=== PATIENT | male | born 1945 | race Caucasian/White ===

== ENCOUNTER 2020-10-27 12:21 | Inpatient (IN) | payer OTHER, MEDICARE ==
[~2020-10-27] VITALS: Ht 167.6 cm; Wt 78.8 kg
[~2020-10-27 12:21] MED LIST changes: -FLOMAX0.4 MG PO; -LEXAPRO20 MG PO; -MELATONIN5 MG PO; -PRESERVISION A1 EAC2 PO
[2020-10-27 12:29] VITALS: BP 126/64
[2020-10-27 13:36] LABS: ABSOLUTE NEUTROPHILS 2.8 thou/uL (1.4-8.2); BASOPHILS 0.6 % (0.0-2.0); EOSINOPHILS 3.9 % (0.0-3.0); HEMATOCRIT 46.5 % (42.0-52.0); HEMOGLOBIN 15.5 gm/dL (14.0-18.0); LYMPHOCYTES 32.6 % (24.0-44.0); MCH 31.4 pg (26.0-34.0); MCHC 33.3 g/dL (28.0-37.0); MCV 94.3 fL (80.0-100.0); MONOCYTES 9.4 % (1.0-8.0); PLATELET COUNT 150 thou/uL (150-400); POLYS 53.5 % (36.0-66.0); RBC 4.93 mil/uL (4.50-6.00); RDW 13.9 % (10.5-14.5); WBC 5.2 thou/uL (4.0-11.0)
[2020-10-27 13:45] LABS: ANION GAP 6 mmol/L (7-16); BUN 20 mg/dL (7-18); CHLORIDE 107 mmol/L (98-107); CO2 30 mmol/L (21-32); GLUCOSE 102 mg/dL (74-106); POTASSIUM 4.2 mmol/L (3.5-5.1); SODIUM 143 mmol/L (136-145)
[2020-10-27 13:53] LABS: APTT 23.9 Seconds (24.5-32.8); INR 1.1; PROTIME 11.9 Seconds (9.3-11.4)
[2020-10-27 13:57] LABS: ALBUMIN 3.7 g/dL (3.4-5.0); MAGNESIUM 1.8 mg/dL (1.8-2.4); SGOT 18 U/L (15-37); SGPT 25 U/L (16-63); TOTAL BILIRUBIN 1.2 mg/dL (0.2-1.0); TOTAL PROTEIN 6.7 g/dL (6.4-8.2); TROPONIN-I <0.06 ng/mL (<0.06)
[2020-10-27 15:35] VITALS: BP 123/63
[2020-10-27 16:35] VITALS: BP 107/59
[2020-10-27] MEDS ORDERED: FLOMAX0.4 MG PO (16:37)
[2020-10-27] MEDS ORDERED: PRESERVISION A1 EAC2 PO (16:39)
[2020-10-27] MEDS ORDERED: LEXAPRO20 MG PO (16:41)
[2020-10-27] MEDS ORDERED: MELATONIN5 MG PO (16:41)
--- NOTE | 2020-10-27 17:30 | EKG ---
[address] [address] ELECTROCARDIOGRAM REPORT Name: CLARISSA YOON Room #: 203-P ADM IN .R.#: [id number] Admission: 10/27/20 Attend Phys: Norman Arevalo MD Discharge: Date of : 45 Report #: [id number] [facility] ED Test Date: 2020-10-27 Test Time: 12:54:43 Pat Name: CLARISSA YOON Department: Room: 203 Gender: M [employer] Analyst: CHRIS : 1945 Requested By: Elliott Dorsey Order Number: [id number] MD: Jay Caruso Measurements Intervals [place] Rate: 38 P: 4 GA: 196 QRS: -27 QRSD: 97 T: 10 QT: 464 QTc: 369 Interpretive Statements Sinus bradycardia, possible heart block Inferior infarct, old No previous ECG available for comparison Electronically Signed On 10-27-2020 17:30:30 CDT by Jay Caruso [email or web address] <ELECTRONICALLY SIGNED> By: Jay Caruso MD, [facility] 10/27/20 1730 1254 1254 Jay Caruso MD, FACC /EPI
--- NOTE | 2020-10-27 17:54 | NUR ---
PT. ARRIVED AT THE FLOOR AROUND 1630; PT. AOX4; ABLE TO AMBULATE WITHOUT ASSISSTANCE; EDUCATED ABOUT FALL PRECAUTIONS AND HIGH FALL PRECAUTIONS DUE TO COMPLETE HEART BLOCK; EDUCATED ABOUT CALLING BEFORE GETTING UP FROM; [facility]; NO C/O PAIN; REQUESTED NICOTINE PATCH AND SLEEP MEDICATION; PHYSICIAN PAGED; ORDERS RECEIVED FROM JARETH ASSISTANT PROFESSOR NURSE EDUCATION; EDUCATED ABOUT ADMISSION; [facility]; NO C/O SOB OR DIZZINESS; REMAINED ABOUT NPO AFTER MIDNIGHT; MEDICATION RECONCILIATION PERFORMED; EDUCATED ABOUT USING THE URINAL; [facility]; HR ON THE 40s; ADMISSION PERFORMED; ASSESSMENT CHARGED; FOLLOWING POC; WILL PASS ON REPORT;
[2020-10-27 20:15] VITALS: BP 118/60
[2020-10-27 23:20] VITALS: BP 101/51
[2020-10-28 04:45] VITALS: BP 125/69
--- NOTE | 2020-10-28 08:03 | NUR ---
[facility] 190. PT/VITALS STABLE. DENIES ANY PAIN. ASSESSMENT CHARTED. PROGRESSING WELL WITH POC. NO DISTRESS NOTED. COMPLETE HEART BLOCK/ SOMETIMES SB ON MONITOR. PLAN IS POSSIBLE PACEMAKER IMPLANTATION TODAY. WILL CONTINUE TO MONITOR AND FOLLOW WITH POC
--- NOTE | 2020-10-28 08:09 | NUR ---
[facility] 1900. PT/VITALS STABLE. BP RUNS HIGH. DENIES ANY PAIN. MODERATE TOLERANCE TO ACTIVITY. ASSESSMENT CHARTED. PROGRESSING WELL WITH POC. NO DISTRESS/ADEQUATE REST NOTED. PLAN IS POSSIBLE CARDIAC CATH TODAY. NPO SINCE MIDNIGHT. WILL CONTINUE TO MONITOR AND FOLLOW WITH POC
[2020-10-28 08:20] VITALS: BP 118/67
--- NOTE | 2020-10-28 13:50 | NUR ---
Nutrition: pt admitted with complete heart block, S/P pacemaker placement today. Seen due to high risk nsg screen for weight loss, poor intake. Pt reports "this was a long time ago". Stating he lost 20 # and had a poor appetite over a year ago. Normal appetite and stable weights past year. Ate 90% of dinner last noc and has been NPO today for procedure. Instructed pt on ordering meals as desired. Consider low nutrition risk.
--- NOTE | 2020-10-28 14:43 | NUR ---
Patient admits with heart block plan for pacemaker. Patient reports he lives at home with roommate. All needs on one level. He does not use any assistive device. He cont to drive. Independent with adls. PCP Dr Dl Gatica, Anticipate no needs at dc. casemgt following.
--- NOTE | 2020-10-28 17:44 | NUR ---
ASSUMED CARE SHIFT CHANGE. ASSESSMENTS CHARTED.MEDS GIVEN PER SEP. VSS. C/O HEADACHE/ SORENESS INCISISON MANAGED WITH PO TYLENOL. COMP HB THIS AM, PACEMAKER THIS SHIFT, AV PACED ON MONITOR IN 60S. IMMOBILIZER IN PLACE, BEDREST PER ORDERS. PT CURRENTLY RESTING IN BED, DENIES NEEDS AT THIS TIME. CONTINUING POC. WILL PASS ON REPORT TO LARA ALEXIS
[2020-10-28 19:30] VITALS: BP 119/67
[2020-10-29 07:57] VITALS: BP 124/81
[2020-10-29 11:35] VITALS: BP 109/79
--- NOTE | 2020-10-29 11:53 | NUR ---
RECEIVED PT'S CARE AROUND 0725; PT. ON BED; VPACED ON THE MONITOR; PER NIGHT NURSE REPORT PT. REFUSED BED SIDE REPORT; DURING AM ASSESSMENT PT. AOX4; C/O PAIN OVER INCISION; TOLERABLE; AM MEDICATIONS GIVEN; EDUCATED ABOUT GOALS THROUGH THE DAY; XRAY; D/C PROCESS; [facility]; D/C ORDERS ON PLACED; PT. NOTIFIED; REQUESTED TO CALL SIGNIFICANT OTHER TO NOTIFIED AND PICK HIM UP; CALL AND NOTIFIED ABOUT D/C TIME, 1300,; [facility]; PT. EDUCATED ABOUT USING IMMOBILIZER DURING THE NIGHT IF NECESSARY IN ORDERS TO AVOID BRING LLE ABOVE SHOULDER; [facility]; ASSESSMENT CHARGED; FOLLOWING POC; WILL WORK ON D/C PAPERS;
[2020-10-29 12:07] VITALS: BP 109/79
--- NOTE | 2020-12-07 10:54 | P ---
[facility] [place] [address] PROCEDURE REPORT Name: CLARISSA YOON Room #: 203-P [facility] IN M.R.#: [id number] Admission: 10/27/20 Attend Phys: Norman Arevalo MD Discharge: 10/29/20 Date of : 45 Report #: [id number] THIS REPORT FOR: cc: Lucien Gatica MD, Christopher B. MD Couchonnal, Luis F. MD ~ DOC #: [id number] Norman Arevalo MD DATE OF SERVICE: 10/28/2020 PROCEDURE PERFORMED: Pacemaker implantation. PREOPERATIVE DIAGNOSIS: Complete heart block. POSTOPERATIVE DIAGNOSIS: Complete heart block. HISTORY: The patient is a gentleman presenting with fatigue, presyncopal symptoms and was noted to be in complete heart block. He was admitted and is here for pacemaker implantation. ANESTHESIA: The patient underwent MAC anesthesia with no anesthesia related complications. DESCRIPTION OF PROCEDURE: The patient underwent informed consent. He was then prepped and draped in a standard fashion, received IV antibiotics and underwent a venogram showing patency of left axillary vein. Next, I injected lidocaine at the incision site. Incision was made, pocket was created over the prepectoral fascia. Access was obtained twice to left axillary vein using the extrathoracic approach. Sheaths were positioned using the modified Seldinger technique. Leads were positioned in the right atrial appendage, right ventricular apex with adequate pacing and sensing thresholds sutured to the prepectoral fascia. Device connected. Pocket was irrigated with vancomycin. Pocket closed in two layers. Surgical glue was placed to outer skin layer. The patient awoke neurologically and hemodynamically intact. No complications. No significant bleeding. The implanted pacemaker and leads were [employer]. The generator model number was [id number], serial #[id number]. Atrial lead was a 5076, 52 cm, serial #[id number]. RV lead was a 5076 model #[id number]. Atrial lead demonstrated P waves 2.5 millivolts, pacing impedance 559 ohms, pacing threshold 0.6 volts at 0.5 milliseconds. RV lead demonstrated R waves of 5.4 millivolts, pacing impedance 633 ohms, pacing threshold 0.3 volts at 0.5 milliseconds. The device was programmed to the DDDR 60 to 130 mode. CONCLUSIONS: 1. Successful dual-chamber pacemaker implantation. 2. Satisfactory atrial and ventricular pacing and sensing thresholds. [facility] [address] [place] [address] PROCEDURE REPORT Name: CLARISSA YOON Room #: 203-P [facility]#: [id number] Admission: 10/27/20 Attend Phys: Norman Arevalo MD Discharge: 10/29/20 Date of : 45 Report #: [id number] Norman Arevalo MD Mikki/ARNAUD <ELECTRONICALLY SIGNED> By: Norman Arevalo MD 12/07/20 1054 1201 2138 Norman Arevalo MD /nt
== END 2020-10-29 12:44 | disposition home or self-care (01) | DRG 244 ==
LOC: ER 12:21 → 2N 14:47 → EROBS 14:47 → 2N 16:31
PROVIDERS: Emergency Medicine; ADMIT Internal Medicine Cardiovascular Disease; ATTEND Internal Medicine Cardiovascular Disease
DX: I44.2 Atrioventricular block, complete (principal); M06.9 Rheumatoid arthritis, unspecified; I10 Essential (primary) hypertension; E78.00 Pure hypercholesterolemia, unspecified; E78.5 Hyperlipidemia, unspecified; I71.2 Thoracic aortic aneurysm, without rupture; Z20.822 Contact with and (suspected) exposure to COVID-19; Z90.49 Acquired absence of other specified parts of digestive tract; Z71.6 Tobacco abuse counseling
CPT/HCPCS: 10081; 62110; 62900; 70005

== ENCOUNTER → 2020-10-27 | Outpatient (CLI) | payer OTHER, MEDICARE ==
[~2020-10-27] MED LIST: FLOMAX0.4 MG PO; LEXAPRO20 MG PO; LIPITOR20 MG PO; LISINOPRIL2.5 M1 PO; MELATONIN5 MG PO; ORENCIA 25250 MG/VIA IV; PRESERVISION A1 EAC2 PO; VICODIN 5-3001 EACH PO
== END ==
LOC: SJCVCIMAG 06:40
PROVIDERS: ATTEND Internal Medicine Cardiovascular Disease
DX: I08.0 Rheumatic disorders of both mitral and aortic valves (principal); I77.89 Other specified disorders of arteries and arterioles; I44.2 Atrioventricular block, complete; R94.31 Abnormal electrocardiogram [ECG] [EKG]; R42 Dizziness and giddiness; I10 Essential (primary) hypertension; E78.5 Hyperlipidemia, unspecified; J44.9 Chronic obstructive pulmonary disease, unspecified; Z90.49 Acquired absence of other specified parts of digestive tract; Z79.899 Other long term (current) drug therapy; Z86.73 Personal history of transient ischemic attack (TIA), and cerebral infarction without residual deficits; Z87.891 Personal history of nicotine dependence

== ENCOUNTER → 2020-11-04 | Outpatient (CLI) | payer OTHER, MEDICARE ==
[~2020-11-04] MED LIST changes: +FLOMAX0.4 MG PO; +LEXAPRO20 MG PO; +MELATONIN5 MG PO; +PRESERVISION A1 EAC2 PO
== END ==
LOC: SJCVC 14:12
PROVIDERS: ATTEND Internal Medicine Cardiovascular Disease
DX: I95.1 Orthostatic hypotension (principal); I44.2 Atrioventricular block, complete; I71.2 Thoracic aortic aneurysm, without rupture; I10 Essential (primary) hypertension; E78.5 Hyperlipidemia, unspecified; M06.9 Rheumatoid arthritis, unspecified; J44.9 Chronic obstructive pulmonary disease, unspecified; F17.210 Nicotine dependence, cigarettes, uncomplicated; Z95.0 Presence of cardiac pacemaker; Z90.49 Acquired absence of other specified parts of digestive tract; Z98.890 Other specified postprocedural states; Z79.899 Other long term (current) drug therapy; Z86.73 Personal history of transient ischemic attack (TIA), and cerebral infarction without residual deficits; Z82.49 Family history of ischemic heart disease and other diseases of the circulatory system